=== PATIENT | female | born 1940 | race Caucasian/White ===

== ENCOUNTER → 2016-07-23 | Outpatient (CLI) | payer MEDICARE ==
[~2016-07-23] MED LIST: AML2.5T PO; ANAS1TAB7 PO; ASPI-586 PO; CALC600T12 PO; CHOL200018 PO; CHRO400T8 PO; COD1CAPS6 PO; GARL10002 PO; HUM100VI13 SQ; HYDR-3702 PO; KCL20TCR PO; LUTE1CAP4 PO; LVT.1T PO; METO2.5T PO; NF-LISIN40 PO; SELE200C PO; SMV20T PO; VITA10007 PO; WARF5TAB PO; WRF5T PO; ZINC50TA31 PO; [UNRECOGNIZED DRUG - CODE] PO
--- NOTE | 2016-07-23 18:16 | Diagnostic Imaging Report ---
INDICATION: Pain, history of breast cancer. COMPARISON: Radiographs of the pelvis dated September 12, 2015. TECHNIQUE: 4 radiographs of the right femur dated July 23, 2016. FINDINGS: No evidence of an acute fracture or dislocation. No destructive osseous process. No healing fracture. The right femoral head maintains its normal shape and contour. Minimal degenerative changes within the right hip and right knee. Extensive vascular calcifications. IMPRESSION: No acute osseous abnormality with minimal degenerative changes and extensive vascular calcifications. Dictated by: Dictated on workstation # [id number]
== END ==
LOC: LAB 14:06
PROVIDERS: ATTEND Internal Medicine Hematology & Oncology
DX: M79.661 Pain in right lower leg (principal); Z85.3 Personal history of malignant neoplasm of breast
CPT/HCPCS: 73552

== ENCOUNTER → 2016-09-27 | Outpatient (CLI) | payer MEDICARE | LOC: LAB 11:13 | PROVIDERS: ATTEND Internal Medicine | DX: E11.43 Type 2 diabetes mellitus with diabetic autonomic (poly)neuropathy (principal); M54.16 Radiculopathy, lumbar region; M54.5 Low back pain | CPT/HCPCS: 36415; 82565; 84520 ==

== ENCOUNTER → 2016-10-01 | Outpatient (CLI) | payer MEDICARE | LOC: RAD 07:37 | PROVIDERS: ATTEND Internal Medicine | DX: M54.5 Low back pain (principal); M54.16 Radiculopathy, lumbar region; M48.06 Spinal stenosis, lumbar region | CPT/HCPCS: 72158; A9579 ==

== ENCOUNTER → 2016-10-30 | Outpatient (CLI) | payer MEDICARE | LOC: LAB 10:39 | PROVIDERS: ATTEND Internal Medicine | DX: Z53.9 Procedure and treatment not carried out, unspecified reason (principal) ==

== ENCOUNTER → 2016-11-01 | Outpatient (CLI) | payer MEDICARE | LOC: LAB 07:26 | PROVIDERS: ATTEND Internal Medicine | DX: Z51.81 Encounter for therapeutic drug level monitoring (principal); Z79.01 Long term (current) use of anticoagulants; E11.43 Type 2 diabetes mellitus with diabetic autonomic (poly)neuropathy; E78.2 Mixed hyperlipidemia | CPT/HCPCS: 36415; 80061; 83036; 85610 ==

== ENCOUNTER → 2016-11-04 | Outpatient (CLI) | payer MEDICARE | LOC: LAB 13:02 | PROVIDERS: ATTEND Internal Medicine | DX: E11.43 Type 2 diabetes mellitus with diabetic autonomic (poly)neuropathy (principal) | CPT/HCPCS: 82043 ==